=== PATIENT | female | born 1945 | race Caucasian/White ===

== ENCOUNTER 2024-01-07 11:54 | Emergency (ER) | payer MEDICARE, MEDICAID ==
[2024-01-07 12:29] LABS: BASOPHILS PERCENT AUTO 0.4 % (0.2-1.2); EOSINOPHILS ABSOLUTE AUTO 0.1 x10^3/uL (0.0-0.5); EOSINOPHILS PERCENT AUTO 1.8 % (0.0-4.0); HEMATOCRIT 28.5 % (33.0-47.0); HEMOGLOBIN 8.9 g/dL (12.0-16.0); IMMATURE GRAN ABSOLUTE AUTO 0.02 x10^3/uL (0.00-0.07); LYMPHOCYTES ABSOLUTE AUTO 0.6 x10^3/uL (1.0-4.8); LYMPHOCYTES PERCENT AUTO 7.8 % (25.0-50.0); MEAN CORPUSCULAR HEMOGLOBIN 28.6 pg (26.0-32.0); MEAN CORPUSCULAR HGB CONC 31.2 g/dL (32.0-36.0); MEAN CORPUSCULAR VOLUME 91.6 fL (78.0-93.0); MONOCYTES ABSOLUTE AUTO 0.9 x10^3/uL (0.0-0.8); MONOCYTES PERCENT AUTO 11.3 % (2.0-11.0); NEUTROPHILS ABSOLUTE AUTO 6.1 x10^3/uL (1.8-7.7); NEUTROPHILS PERCENT AUTO 78.4 % (50.0-80.0); PLATELET COUNT,PLT 212 x10^3/uL (130-400); RED BLOOD CELL COUNT 3.11 x10^6/uL (4.00-5.50); WHITE BLOOD CELL COUNT,WBC 7.8 x10^3/uL (4.0-10.0)
[2024-01-07 12:51] LABS: A/G RATIO 0.74; ALANINE AMINOTRANSFERASE,ALT 23 U/L (14-59); ALBUMIN 2.8 g/dL (3.4-5.0); ALKALINE PHOSPHATASE 113 U/L (46-116); ANION GAP 12.3 mmol/L (5-15); ASPARTATE AMNIOTRANSFERASE,AST 45 U/L (15-37); BILIRUBIN TOTAL 0.5 mg/dL (0.2-1.0); BLOOD UREA NITROGEN,BUN 38 mg/dL (7-18); CALCIUM 8.4 mg/dL (8.5-10.1); CARBON DIOXIDE,CO2 28 mmol/L (21-32); CHLORIDE,CL 104 mmol/L (98-107); CREATININE 2.3 mg/dL (0.55-1.02); ESTIMATED GFR 21 mL/min (>=60); GLUCOSE RANDOM 89 mg/dL (70-99); LIPASE 69 U/L (19-71); POTASSIUM,K 3.3 mmol/L (3.5-5.1); PRO B-TYPE NATRIUR PEPT,BNPPRO 9042 pg/mL (<=450); PROTEIN TOTAL,TP 6.6 g/dL (6.4-8.2); SODIUM,NA 141 mmol/L (136-145)
[2024-01-07 12:54] LABS: APPEARANCE,URINE CLEAR (CLEAR); BILIRUBIN,URINE NEGATIVE (NEGATIVE); COLOR,URINE YELLOW (YELLOW); GLUCOSE,URINE NEGATIVE (NEGATIVE); KETONES,URINE NEGATIVE (NEGATIVE); LEUKOCYTE ESTERASE,URINE NEGATIVE (NEGATIVE); NITRITE,URINE NEGATIVE (NEGATIVE); OCCULT BLOOD,URINE MODERATE (NEGATIVE); PROTEIN,URINE 30 mg/dL (NEGATIVE); UROBILINOGEN,URINE 0.2 EU/dL (0.2)
[2024-01-07 13:03] LABS: CORONAVIRUS COVID-19 NAA NEGATIVE (NEGATIVE)
[2024-01-07 13:04] LABS: INFLUENZA A NAA NEGATIVE (NEGATIVE); INFLUENZA B NAA NEGATIVE (NEGATIVE); RESPIRATORY SYNCYTIAL VIR NAA NEGATIVE (NEGATIVE)
[2024-01-07 13:04] LABS: BACTERIA,URINE OCCASIONAL /HPF (NOT SEEN); MUCUS,URINE NOT SEEN /LPF (NOT SEEN); SQUAMOUS EPITHELIAL CELLS,UR RARE /HPF (NOT SEEN); WBC,URINE 0-5 /HPF (NOT SEEN)
[2024-01-07] MEDS: Furosemide 40 MG/4 ML VIAL IV ONE (13:44)
[2024-01-07] MEDS: Albuterol 0.083% 2.5 MG/3 ML Neb Soln NEB ONE (13:46)
== END 2024-01-07 15:53 | disposition home or self-care (01) ==
LOC: VM.ED 11:54
DX: I50.9 Heart failure, unspecified (principal); R91.8 Other nonspecific abnormal finding of lung field; Z88.2 Allergy status to sulfonamides; Z88.5 Allergy status to narcotic agent; Z91.018 Allergy to other foods; Z88.8 Allergy status to other drugs, medicaments and biological substances
CPT/HCPCS: 0241U; 71045; 71250; 80053; 81001; 83605; 83690; 83880; 84484; 85025; 93005; 96374; 99285; J1940; 36415; 93010; 99284; J7613-GY